=== PATIENT | male | born 1945 | race Caucasian/White ===

== ENCOUNTER 2016-10-01 16:12 | Inpatient (IN) | payer OTHER ==
[~2016-10-01] VITALS: Ht 185.4 cm; Wt 140.9 kg
[~2016-10-01 16:12] MED LIST: AEROECLIPSE1 EACH MC; ALDACTONE25 MG PO; AMITIZA24 MICROGR PO; AMLODIPINE BESY10 MG PO; ASPIRIN81 M1 PO; ASPIRIN81 M2 PO; Ambien PO; Aspirin E.C. PO; Augmentin PO; BACLOFEN10 MG PO; BACTRIM,SEPT1 TABLET PO; BETHANECHOL CHL25 MG PO; BISOPROLOL FUMA10 MG PO; BISOPROLOL FUMAR5 MG PO; CALCI-MIX500 MG PO; CALCIUM + VITA1 EACH PO; CALCIUM 500 MG1 EACH PO; CALCIUM500 M4 PO; CATAPRES0.1 MG PO; CECLOR PO; CEPHALEXIN500 MG PO; CIPRO250 MG PO; CIPRO500 MG PO; CIPROFLOXACIN500 M1 PO; CLARITIN10 MG PO; CLEARLAX17 GM PO; CLOTRIMAZOLE-BE15 GM TP; COLACE100 MG PO; COZAAR25 MG PO; CRANBERRY400 M1 PO; CRESTOR5 MG PO; CYANOCOBALAM1000 MCG PO; DAILY VALUE1 EACH PO; DESYREL100 MG PO; DESYREL300 MG PO; DULCOLAX10 MG PR; DUONEB 2.5-0.5 M3 ML IH; Desyrel PO; DuoNeb IH; FINASTERIDE5 MG PO; FLONASE16 G1 BOTH NARES; FOLIC ACID0.4 MG PO; FOLIC ACID0.8 MG PO; FUROSEMIDE40 MG PO; Flagyl PO; GABAPENTIN100 MG PO; GLYCERIN; HALFPRIN162 MG PO; HYDROCHLOROTH12.5 M3 PO; HYDROCHLOROTHIA25 MG PO; HYDROCODON-ACE1 EAC7 PO; Hydrodiuril,Oretic,E PO; K-DUR20 MEQ PO; K-Dur PO; KEFLEX500 MG PO; KETOCONAZOLE60 GM TP; KLOR-CON M2020 MEQ PO; LASIX20 MG PO; LASIX40 MG PO; LEVAQUIN750 MG PO; LIDODERM 5% P1 PATCH TD; LINEZOLID600 MG PO; LIORESAL10 MG PO; LIPITOR20 MG PO; LISINOPRIL10 MG PO; LISINOPRIL5 MG PO; LO-DOSE ASPIRIN81 M1 PO; LOPRESSOR100 M1 PO; LOPRESSOR50 MG PO; LOSARTAN POTAS100 MG PO; LOSARTAN POTASS25 MG PO; LOSARTAN-HCTZ1 EAC1 PO; LOW DOSE ASPIRI81 M1 PO; Lasix PO; Levaquin PO; Lopressor PO; Lovenox SC; MACROBID100 MG PO; MAGNESIUM CITR296 M1 PO; MANDELAMINE PO; MANDELAMINE500 MG PO; METHENAMINE HIPP1 G1 PO; METHENAMINE MA500 MG PO; METOPROLOL TART50 MG PO; MIRALAX17 GM PO; MIRALAX255 GM PO; MOTRIN600 MG PO; MULTIPLE VITAM1 EAC1 PO; MULTIVITAMIN1 EAC2 PO; MULTIVITAMINS1 EA11 PO; Maalox, Mylanta PO; Milk Of Magnesia,MOM PO; Miralax, Glycolax PO; NEURONTIN100 MG PO; NEURONTIN300 MG PO; NITROFURANTOIN100 MG PO; NORVASC10 MG PO; NORVASC5 MG PO; NYSTATIN-TRIAMC15 GM TP; Nitrostat,NitroQuick SL; Norvasc PO; ONE-A-DAY ESSE1 EAC1 PO; PHENADOZ12.5 MG PR; PHENERGAN12.5 MG PR; POLYETHYLENE GL17 GM PO; POTASSIUM CHLO20 ME2 PO; PRAVACHOL40 MG PO; PRAVASTATIN SOD40 MG PO; PRINIVIL40 MG PO; PROMETHAZINE HC25 M1 PO; PROSCAR5 MG PO; Pravachol PO; Proscar PO; REMERON30 M2 PO; ROXICODONE5 MG PO; Remeron PO; SANTYL30 GM TP; SENNA PLUS TAB1 EACH PO; SENNA8.6 M1 PO; SENOKOT,SENN1 TABLET PO; SILVADENE20 GM TP; SPIRONOLACTONE25 MG PO; TERAZOSIN HCL10 MG PO; THERACRAN650 MG PO; TRAZODONE HCL100 MG PO; TRAZODONE HCL50 MG PO; TYLENOL REGULA325 MG PO; Theragran PO; Tums,OsCal PO; URECHOLINE25 MG PO; Ultram PO; Urecholine PO; VITAMIN B122500 MCG PO; ZESTRIL10 MG PO; ZITHROMAX250 MG PO; ZITHROMAX500 MG PO; Zestril,Prinivil PO; Zofran IV; [UNRECOGNIZED DRUG - OTHER] PO; folic PO; oxyCODONE PO
[2016-10-01] MEDS ORDERED: LOPRESSOR50 MG PO (16:47)
[2016-10-01 16:54] LABS: HEMATOCRIT 34.9 % (38.0-50.0); MCH 27.3 PG (29.0-34.0); MCHC 31.8 G/DL (30.0-36.0); MEAN PLAT.VOLUME 9.3 uM^3 (9.0-12.4); PLATELET COUNT 168 K/uL (156-360); RBC DIS.WIDTH-CV 15.3 % (11.8-14.6); RBC DIS.WIDTH-SD 47.9 % (39-53); RED BLOOD COUNT 4.06 M/uL (4.00-5.50); WHITE BLOOD COUNT 6.4 K/uL (4.1-10.2)
[2016-10-01] MEDS ORDERED: LISINOPRIL5 MG PO (16:54)
[2016-10-01 17:05] LABS: CHLORIDE 99 mEq/L (99-109); POTASSIUM 3.5 mEq/L (3.7-5.4); SODIUM 138 mEq/L (136-147)
[2016-10-01 17:06] LABS: GLUCOSE 123 mg/dL (70-99)
[2016-10-01 17:08] LABS: ANION GAP 9 MEQ/L (2-14)
[2016-10-01 17:10] LABS: GFR ESTIMATE (CALCULATED) 28 mL/min/
[2016-10-01 17:11] LABS: UREA NITROGEN (BUN) 24 mg/dL (9-23)
[2016-10-01 17:55] LABS: ADD MIUA? YES; BILIRUBIN NEGATIVE; BLOOD MODERATE; COLOR YELLOW ((YELLOW)); GLUCOSE (STRIP) NEGATIVE; KETONES NEGATIVE; LEUKOCYTES LARGE; NITRITE NEGATIVE; PH, URINE 6.5 (5-8); PROTEIN (STRIP) TRACE; UROBILINOGEN 0.2 MG/DL (0.2-1.0)
[2016-10-01 18:12] LABS: BACTERIA 1+; EPITHELIAL CELLS NONE SEEN; MUCUS NONE SEEN; RED BLOOD CELLS 0-5 /HPF (0-5); UCUL ADDED? YES; WHITE BLOOD CELLS TNTC /HPF (0-5)
[2016-10-01 18:13] LABS: CASTS NONE SEEN /LPF; CRYSTALS NONE SEEN
[2016-10-02 00:03] VITALS: BP 151/71
[2016-10-02 07:26] LABS: ANION GAP 8 MEQ/L (2-14); CHLORIDE 101 MEQ/L (99-109); GFR ESTIMATE (CALCULATED) 33 mL/min/; GLUCOSE 110 mg/dL (70-99); POTASSIUM 3.6 MEQ/L (3.7-5.4); SAMPLE HEMOLYSIS CHECK 0; SAMPLE ICTERIC CHECK 0; SAMPLE LIPEMIA CHECK 0; SODIUM 140 MEQ/L (136-147); UREA NITROGEN (BUN) 24 mg/dL (9-23)
[2016-10-02 08:00] VITALS: BP 165/77
[2016-10-02 12:54] VITALS: BP 136/71
[2016-10-02 20:49] VITALS: BP 118/58
[2016-10-03] VITALS (8 sets, daily range): BP systolic 110–155; BP diastolic 57–71
[2016-10-03 06:40] LABS: ANION GAP 6 MEQ/L (2-14); CHLORIDE 103 MEQ/L (99-109); GFR ESTIMATE (CALCULATED) 33 mL/min/; GLUCOSE 102 mg/dL (70-99); POTASSIUM 4.3 MEQ/L (3.7-5.4); SAMPLE HEMOLYSIS CHECK 1; SAMPLE ICTERIC CHECK 0; SAMPLE LIPEMIA CHECK 0; SODIUM 139 MEQ/L (136-147); UREA NITROGEN (BUN) 22 mg/dL (9-23)
[2016-10-04 06:05] LABS: HEMATOCRIT 31.1 % (38.0-50.0); MCHC 30.9 G/DL (30.0-36.0); MCV 87.6 FL (86-99); MEAN PLAT.VOLUME 9.8 uM^3 (9.0-12.4); PLATELET COUNT 156 K/uL (156-360); RBC DIS.WIDTH-CV 15.2 % (11.8-14.6); RBC DIS.WIDTH-SD 49.1 % (39-53); RED BLOOD COUNT 3.55 M/uL (4.00-5.50); WHITE BLOOD COUNT 4.7 K/uL (4.1-10.2)
[2016-10-04 06:33] LABS: ANION GAP 10 MEQ/L (2-14); CHLORIDE 103 MEQ/L (99-109); GFR ESTIMATE (CALCULATED) 42 mL/min/; GLUCOSE 106 mg/dL (70-99); POTASSIUM 4.2 MEQ/L (3.7-5.4); SAMPLE HEMOLYSIS CHECK 0; SAMPLE ICTERIC CHECK 0; SAMPLE LIPEMIA CHECK 0; SODIUM 141 MEQ/L (136-147); UREA NITROGEN (BUN) 19 mg/dL (9-23)
[2016-10-04 07:23] VITALS: BP 138/75
[2016-10-04 23:10] VITALS: BP 143/60
[2016-10-05 07:03] LABS: ANION GAP 7 MEQ/L (2-14); CHLORIDE 105 MEQ/L (99-109); GFR ESTIMATE (CALCULATED) 40 mL/min/; GLUCOSE 135 mg/dL (70-99); POTASSIUM 4.4 MEQ/L (3.7-5.4); SAMPLE HEMOLYSIS CHECK 0; SAMPLE ICTERIC CHECK 0; SAMPLE LIPEMIA CHECK 0; SODIUM 139 MEQ/L (136-147); UREA NITROGEN (BUN) 20 mg/dL (9-23)
[2016-10-05 07:22] VITALS: BP 160/77
[2016-10-05] MEDS ORDERED: CIPRO500 MG PO (13:18)
== END 2016-10-05 14:55 | disposition home health service (06) | DRG 698 ==
LOC: EME → EDBD 16:12 → 5WEST 19:33 → EDOF 19:33 → 5WEST 23:33 → 5EAST 10-02 10:18 → 5WEST 10-02 10:18 → 5EAST 10-03 13:25
PROVIDERS: Emergency Medicine; Family Medicine; Nurse Practitioner Adult Health
DX: T83.511A Infection and inflammatory reaction due to indwelling urethral catheter, initial encounter (principal); N39.0 Urinary tract infection, site not specified; G82.50 Quadriplegia, unspecified; L89.893 Pressure ulcer of other site, stage 3; N17.9 Acute kidney failure, unspecified; Z68.41 Body mass index [BMI] 40.0-44.9, adult; N31.9 Neuromuscular dysfunction of bladder, unspecified; I12.9 Hypertensive chronic kidney disease with stage 1 through stage 4 chronic kidney disease, or unspecified chronic kidney disease; E78.5 Hyperlipidemia, unspecified; T83.091A Other mechanical complication of indwelling urethral catheter, initial encounter; E87.6 Hypokalemia; Z95.810 Presence of automatic (implantable) cardiac defibrillator; E66.01 Morbid (severe) obesity due to excess calories; Y84.6 Urinary catheterization as the cause of abnormal reaction of the patient, or of later complication, without mention of misadventure at the time of the procedure; I25.10 Atherosclerotic heart disease of native coronary artery without angina pectoris; M47.9 Spondylosis, unspecified; L83 Acanthosis nigricans; N18.3 Chronic kidney disease, stage 3 (moderate); N20.0 Calculus of kidney; N28.1 Cyst of kidney, acquired
CPT/HCPCS: 71010; 74176; 76770; 80048; 80069; 81003; 85027; 87086; 94799; 99281; 99285; G0378; J0744; J1644; J2405; J7030

== ENCOUNTER 2017-04-28 23:32 | Inpatient (IN) | payer OTHER ==
[~2017-04-28] VITALS: Ht 185.4 cm; Wt 128.1 kg
[2017-04-29 00:46] LABS: BASOPHIL COUNT 0.1 K/uL (0-0.1); EOSINOPHIL (%) 0 % (0-5); HEMATOCRIT 34.9 % (38.0-50.0); IMMATURE GRANULOCYTE (%) 1.4 % (0.0-0.7); IMMATURE GRANULOCYTE COUNT 0.4 K/uL; INSTRUMENT ABS NEUTROPHIL CT 26.8 K/uL; LYMPHOCYTE COUNT 0.6 K/uL (1.0-2.8); MCH 26.7 PG (29.0-34.0); MCHC 30.9 G/DL (30.0-36.0); MCV 86.4 FL (86-99); MEAN PLAT.VOLUME 9.9 uM^3 (9.0-12.4); MONOCYTE (%) 4.8 % (3-12); MONOCYTE COUNT 1.4 K/uL (0-0.8); NEUTROPHIL (%) 91.7 % (45-76); NEUTROPHIL COUNT 26.8 K/uL (1.8-6.4); PLATELET COUNT 134 K/uL (156-360); RBC DIS.WIDTH-CV 17.9 % (11.8-14.6); RBC DIS.WIDTH-SD 55.7 % (39-53); RED BLOOD COUNT 4.04 M/uL (4.00-5.50); WHITE BLOOD COUNT 29.2 K/uL (4.1-10.2)
[2017-04-29 00:55] LABS: CHLORIDE 99 mEq/L (99-109); POTASSIUM 3.9 mEq/L (3.7-5.4); SODIUM 138 mEq/L (136-147)
[2017-04-29 00:58] LABS: GLUCOSE 133 mg/dL (70-99)
[2017-04-29 00:59] LABS: ANION GAP 12 MEQ/L (2-14)
[2017-04-29 01:00] LABS: TOTAL BILIRUBIN 1.1 mg/dL (0.0-1.0)
[2017-04-29 01:01] LABS: ALKALINE PHOSPHATASE 76 IU/L (3-129); GFR ESTIMATE (CALCULATED) 27 mL/min/
[2017-04-29 01:03] LABS: UREA NITROGEN (BUN) 36 mg/dL (9-23)
[2017-04-29 01:06] LABS: TROP-I INTERPRETATION NEGATIVE; TROPONIN-I 0.02 ng/mL (0.0-0.30)
[2017-04-29 01:06] LABS: ADD MIUA? YES; BILIRUBIN NEGATIVE; BLOOD MODERATE; COLOR AMBER ((YELLOW)); GLUCOSE (STRIP) NEGATIVE; KETONES NEGATIVE; LEUKOCYTES MODERATE; NITRITE NEGATIVE; PROTEIN (STRIP) 100; SPECIFIC GRAVITY 1.013 (1.000-1.030); UROBILINOGEN 0.2 MG/DL (0.2-1.0)
[2017-04-29 01:26] LABS: BACTERIA 3+ /HPF; RED BLOOD CELLS TNTC /HPF (0-5); UCUL ADDED? YES; WHITE BLOOD CELLS TNTC /HPF (0-5)
[2017-04-29] MEDS ORDERED: MANDELAMINE500 MG PO (01:50)
[2017-04-29] MEDS ORDERED: MULTI-DAY VITA1 EACH PO (01:51)
[2017-04-29] MEDS ORDERED: PROVENTIL,2.5 MG/3 M IH (01:51)
[2017-04-29 07:14] VITALS: BP 79/46
[2017-04-29 07:50] VITALS: BP 84/49
[2017-04-29 08:19] LABS: HEMATOCRIT 28.1 % (38.0-50.0); MCH 28.6 PG (29.0-34.0); MCHC 32.7 G/DL (30.0-36.0); MCV 87.3 FL (86-99); MEAN PLAT.VOLUME 10.3 uM^3 (9.0-12.4); PLATELET COUNT 100 K/uL (156-360); RBC DIS.WIDTH-CV 17.9 % (11.8-14.6); RBC DIS.WIDTH-SD 56.6 % (39-53)
[2017-04-29 08:27] LABS: RED BLOOD COUNT 3.22 M/uL (4.00-5.50)
[2017-04-29 08:28] VITALS: BP 92/51
[2017-04-29 08:49] LABS: ANION GAP 9 MEQ/L (2-14); CHLORIDE 102 MEQ/L (99-109); SAMPLE HEMOLYSIS CHECK 1; SAMPLE ICTERIC CHECK 0; SAMPLE LIPEMIA CHECK 0; SODIUM 138 MEQ/L (136-147)
[2017-04-29 08:54] LABS: GFR ESTIMATE (CALCULATED) 30 mL/min/; GLUCOSE 113 mg/dL (70-99); UREA NITROGEN (BUN) 37 mg/dL (9-23)
[2017-04-29 12:08] VITALS: BP 95/50
[2017-04-29 15:54] VITALS: BP 109/57
[2017-04-29 19:56] VITALS: BP 95/42
[2017-04-30 00:10] VITALS: BP 113/57
[2017-04-30 03:55] VITALS: BP 104/53
[2017-04-30 06:34] LABS: HEMATOCRIT 28.7 % (38.0-50.0); MCH 27.1 PG (29.0-34.0); MCV 87.2 FL (86-99); MEAN PLAT.VOLUME 10.8 uM^3 (9.0-12.4); PLATELET COUNT 89 K/uL (156-360); RBC DIS.WIDTH-CV 17.5 % (11.8-14.6); RBC DIS.WIDTH-SD 56.4 % (39-53); RED BLOOD COUNT 3.29 M/uL (4.00-5.50); WHITE BLOOD COUNT 10.8 K/uL (4.1-10.2)
[2017-04-30 06:59] LABS: ANION GAP 8 MEQ/L (2-14); CHLORIDE 104 MEQ/L (99-109); GFR ESTIMATE (CALCULATED) 30 mL/min/; GLUCOSE 111 mg/dL (70-99); POTASSIUM 3.8 MEQ/L (3.7-5.4); SAMPLE HEMOLYSIS CHECK 0; SAMPLE ICTERIC CHECK 0; SAMPLE LIPEMIA CHECK 0; SODIUM 138 MEQ/L (136-147); UREA NITROGEN (BUN) 40 mg/dL (9-23)
[2017-04-30 07:51] VITALS: BP 162/74
[2017-04-30 11:16] VITALS: BP 114/68
[2017-04-30 16:05] VITALS: BP 109/72
[2017-04-30 19:56] VITALS: BP 172/83
[2017-04-30 20:36] LABS: C DIFF TOXIN POSITIVE (NEGATIVE)
[2017-04-30 20:46] LABS: PROBE CHECK PASS
[2017-05-01 00:11] VITALS: BP 138/72
[2017-05-01 04:10] VITALS: BP 140/72
[2017-05-01 06:34] LABS: HEMATOCRIT 27.9 % (38.0-50.0); MCH 27.3 PG (29.0-34.0); MCHC 31.5 G/DL (30.0-36.0); MCV 86.6 FL (86-99); MEAN PLAT.VOLUME 10.7 uM^3 (9.0-12.4); PLATELET COUNT 96 K/uL (156-360); RBC DIS.WIDTH-CV 17.5 % (11.8-14.6); RBC DIS.WIDTH-SD 55.3 % (39-53); RED BLOOD COUNT 3.22 M/uL (4.00-5.50); WHITE BLOOD COUNT 6.6 K/uL (4.1-10.2)
[2017-05-01 07:01] LABS: ANION GAP 8 MEQ/L (2-14); CHLORIDE 105 MEQ/L (99-109); GFR ESTIMATE (CALCULATED) 33 mL/min/; GLUCOSE 110 mg/dL (70-99); POTASSIUM 3.9 MEQ/L (3.7-5.4); SAMPLE HEMOLYSIS CHECK 2; SAMPLE ICTERIC CHECK 0; SAMPLE LIPEMIA CHECK 0; SODIUM 141 MEQ/L (136-147); UREA NITROGEN (BUN) 32 mg/dL (9-23)
[2017-05-01 08:19] VITALS: BP 122/68
[2017-05-01 12:28] VITALS: BP 118/62
[2017-05-01 16:30] VITALS: BP 120/64
[2017-05-01 20:06] VITALS: BP 138/63
[2017-05-02] VITALS (7 sets, daily range): BP systolic 122–153; BP diastolic 58–79
[2017-05-02 07:09] LABS: HEMATOCRIT 29.2 % (38.0-50.0); MCH 27.7 PG (29.0-34.0); MCHC 31.2 G/DL (30.0-36.0); MEAN PLAT.VOLUME 10.6 uM^3 (9.0-12.4); PLATELET COUNT 106 K/uL (156-360); RBC DIS.WIDTH-CV 17.4 % (11.8-14.6); RBC DIS.WIDTH-SD 57.2 % (39-53); RED BLOOD COUNT 3.28 M/uL (4.00-5.50); WHITE BLOOD COUNT 5.3 K/uL (4.1-10.2)
[2017-05-02 07:34] LABS: ANION GAP 5 MEQ/L (2-14); CHLORIDE 104 MEQ/L (99-109); GFR ESTIMATE (CALCULATED) 33 mL/min/; GLUCOSE 102 mg/dL (70-99); POTASSIUM 3.7 MEQ/L (3.7-5.4); SAMPLE HEMOLYSIS CHECK 0; SAMPLE ICTERIC CHECK 0; SAMPLE LIPEMIA CHECK 0; SODIUM 143 MEQ/L (136-147); UREA NITROGEN (BUN) 33 mg/dL (9-23)
[2017-05-03 03:39] VITALS: BP 118/72
[2017-05-03 06:39] LABS: HEMATOCRIT 31.2 % (38.0-50.0); MCHC 30.8 G/DL (30.0-36.0); MCV 87.6 FL (86-99); MEAN PLAT.VOLUME 10.2 uM^3 (9.0-12.4); PLATELET COUNT 130 K/uL (156-360); RBC DIS.WIDTH-CV 16.9 % (11.8-14.6); RBC DIS.WIDTH-SD 54.3 % (39-53); RED BLOOD COUNT 3.56 M/uL (4.00-5.50); WHITE BLOOD COUNT 5.4 K/uL (4.1-10.2)
[2017-05-03 07:07] LABS: ANION GAP 5 MEQ/L (2-14); CHLORIDE 102 MEQ/L (99-109); GFR ESTIMATE (CALCULATED) 37 mL/min/; GLUCOSE 103 mg/dL (70-99); POTASSIUM 3.9 MEQ/L (3.7-5.4); SAMPLE HEMOLYSIS CHECK 0; SAMPLE ICTERIC CHECK 0; SAMPLE LIPEMIA CHECK 0; SODIUM 144 MEQ/L (136-147); UREA NITROGEN (BUN) 32 mg/dL (9-23)
[2017-05-03 07:46] VITALS: BP 140/78
[2017-05-03 12:06] VITALS: BP 117/69
[2017-05-03] MEDS ORDERED: ACIDOPHILUS LA1 EACH PO (12:29)
[2017-05-03] MEDS ORDERED: METRONIDAZOLE500 MG PO (12:29)
[2017-05-03 16:24] VITALS: BP 162/88
== END 2017-05-03 18:08 | disposition home or self-care (01) | DRG 871 ==
LOC: EME → EDBD 23:32 → EDOF 04-29 03:57 → 3EAST 04-29 03:57 → ENRESERV 04-29 03:59 → 3EAST 04-29 05:44
PROVIDERS: Emergency Medicine; Hospitalist; Internal Medicine
DX: A41.9 Sepsis, unspecified organism (principal); J15.0 Pneumonia due to Klebsiella pneumoniae; E87.2 Acidosis; L89.159 Pressure ulcer of sacral region, unspecified stage; A04.7 Enterocolitis due to Clostridium difficile; N39.0 Urinary tract infection, site not specified; L89.893 Pressure ulcer of other site, stage 3; N17.9 Acute kidney failure, unspecified; G82.50 Quadriplegia, unspecified; I13.0 Hypertensive heart and chronic kidney disease with heart failure and stage 1 through stage 4 chronic kidney disease, or unspecified chronic kidney disease; I50.9 Heart failure, unspecified; I25.10 Atherosclerotic heart disease of native coronary artery without angina pectoris; D64.9 Anemia, unspecified; R09.02 Hypoxemia; E78.5 Hyperlipidemia, unspecified; N31.9 Neuromuscular dysfunction of bladder, unspecified; N18.9 Chronic kidney disease, unspecified; K21.9 Gastro-esophageal reflux disease without esophagitis; R21 Rash and other nonspecific skin eruption; E66.9 Obesity, unspecified; Z68.37 Body mass index [BMI] 37.0-37.9, adult; B96.20 Unspecified Escherichia coli [E. coli] as the cause of diseases classified elsewhere; Z74.01 Bed confinement status; Z95.810 Presence of automatic (implantable) cardiac defibrillator; Z72.0 Tobacco use; Z79.899 Other long term (current) drug therapy; Z80.8 Family history of malignant neoplasm of other organs or systems; Z80.0 Family history of malignant neoplasm of digestive organs
CPT/HCPCS: 71020; 80048; 80048 91; 80053; 81003; 83605; 83880; 84484; 85025; 85027; 87040; 87070; 87077; 87086; 87186; 87205; 87493; 87801; 93005; 94640; 94640 76; 94799; 99202; 99281; 99285; A6260; J0692; J0696; J1644; J2405; J3370; J7030; J7040; J7050; S0028; S0030

== ENCOUNTER 2017-11-13 09:37 | Inpatient (IN) | payer OTHER ==
[~2017-11-13] VITALS: Ht 182.9 cm; Wt 78.8 kg
[~2017-11-13 09:37] MED LIST changes: +ACIDOPHILUS LA1 EACH PO; +METRONIDAZOLE500 MG PO; +MULTI-DAY VITA1 EACH PO; +PROVENTIL,2.5 MG/3 M IH
[2017-11-13 10:13] LABS: BASOPHIL (%) 0.2 % (0-1); EOSINOPHIL (%) 0 % (0-5); IMMATURE GRANULOCYTE (%) 0.5 % (0.0-0.7); LYMPHOCYTE (%) 1.6 % (15-42); LYMPHOCYTE COUNT 0.4 K/uL (1.0-2.8); MCH 27.8 PG (29.0-34.0); MCHC 32.4 G/DL (30.0-36.0); MCV 86.1 FL (86-99); MONOCYTE (%) 4.7 % (3-12); NEUTROPHIL COUNT 20.6 K/uL (1.8-6.4); PLATELET COUNT 153 K/uL (156-360); RBC DIS.WIDTH-CV 15.4 % (11.8-14.6); RED BLOOD COUNT 3.95 M/uL (4.00-5.50); WHITE BLOOD COUNT 22.1 K/uL (4.1-10.2)
[2017-11-13 10:17] LABS: INTER. NORMALIZED RATIO 1.2
[2017-11-13 10:20] LABS: PTT 24.7 SEC (25-37)
[2017-11-13 10:21] LABS: CHLORIDE 99 mEq/L (99-109); POTASSIUM 3.8 mEq/L (3.7-5.4); SODIUM 136 mEq/L (136-147)
[2017-11-13 10:23] LABS: GLUCOSE 122 mg/dL (70-99)
[2017-11-13 10:27] LABS: CREATININE 2.2 mg/dL (0.6-1.3); GFR ESTIMATE (CALCULATED) 31 mL/min/ (58.99-99999)
[2017-11-13 10:28] LABS: UREA NITROGEN (BUN) 34 mg/dL (9-23)
[2017-11-13 10:33] LABS: TROP-I INTERPRETATION NEGATIVE
[2017-11-13] MEDS ORDERED: [UNRECOGNIZED DRUG - OTHER] TP (12:34)
[2017-11-13 18:40] VITALS: BP 82/47
[2017-11-13 19:35] LABS: TROP-I INTERPRETATION NEGATIVE; TROPONIN-I 0.11 ng/mL (0.0-0.30)
[2017-11-14 01:10] LABS: C DIFF TOXIN POSITIVE (NEGATIVE)
[2017-11-14 03:43] LABS: TROP-I INTERPRETATION NEGATIVE; TROPONIN-I 0.05 ng/mL (0.0-0.30)
[2017-11-14 04:00] LABS: APPEARANCE CLOUDY ((CLEAR)); BILIRUBIN NEGATIVE; BLOOD LARGE; GLUCOSE (STRIP) 150; KETONES NEGATIVE; LEUKOCYTES NEGATIVE; NITRITE NEGATIVE; PROTEIN (STRIP) >=500; UROBILINOGEN 0.2 MG/DL (0.2-1.0)
[2017-11-14 04:01] LABS: COLOR RED ((YELLOW))
[2017-11-14 04:17] VITALS: BP 134/65
[2017-11-14 04:21] LABS: RED BLOOD CELLS TNTC /HPF (0-5)
[2017-11-14 04:59] LABS: HEMATOCRIT 31.7 % (38.0-50.0); HEMOGLOBIN 10.1 G/DL (12.5-16.6); MCH 27.7 PG (29.0-34.0); MCHC 31.9 G/DL (30.0-36.0); MCV 86.8 FL (86-99); PLATELET COUNT 137 K/uL (156-360); RBC DIS.WIDTH-CV 15.6 % (11.8-14.6); RBC DIS.WIDTH-SD 49.4 % (39-53); RED BLOOD COUNT 3.65 M/uL (4.00-5.50); WHITE BLOOD COUNT 15.4 K/uL (4.1-10.2)
[2017-11-14 05:03] LABS: CHLORIDE 101 mEq/L (99-109); POTASSIUM 3.8 mEq/L (3.7-5.4); SODIUM 138 mEq/L (136-147)
[2017-11-14 05:05] LABS: GLUCOSE 128 mg/dL (70-99)
[2017-11-14 05:09] LABS: CREATININE 2.4 mg/dL (0.6-1.3); GFR ESTIMATE (CALCULATED) 28 mL/min/ (58.99-99999)
[2017-11-14 05:10] LABS: UREA NITROGEN (BUN) 44 mg/dL (9-23)
[2017-11-14 08:12] VITALS: BP 125/63
[2017-11-14 16:15] VITALS: BP 124/60
[2017-11-14 20:33] VITALS: BP 78/44
[2017-11-14 21:16] VITALS: BP 100/62
[2017-11-15 00:05] VITALS: BP 100/55
[2017-11-15 05:06] VITALS: BP 90/52
[2017-11-15 05:43] LABS: BASOPHIL (%) 0.2 % (0-1); EOSINOPHIL (%) 2.8 % (0-5); EOSINOPHIL COUNT 0.3 K/uL (0-0.3); HEMATOCRIT 28.4 % (38.0-50.0); HEMOGLOBIN 8.7 G/DL (12.5-16.6); IMMATURE GRANULOCYTE (%) 0.5 % (0.0-0.7); LYMPHOCYTE (%) 4.9 % (15-42); LYMPHOCYTE COUNT 0.5 K/uL (1.0-2.8); MCH 27.4 PG (29.0-34.0); MCHC 30.6 G/DL (30.0-36.0); MCV 89.3 FL (86-99); MONOCYTE (%) 5.4 % (3-12); MONOCYTE COUNT 0.5 K/uL (0-0.8); NEUTROPHIL (%) 86.2 % (45-76); NEUTROPHIL COUNT 8.1 K/uL (1.8-6.4); PLATELET COUNT 118 K/uL (156-360); RBC DIS.WIDTH-CV 15.6 % (11.8-14.6); RBC DIS.WIDTH-SD 51.4 % (39-53); RED BLOOD COUNT 3.18 M/uL (4.00-5.50); WHITE BLOOD COUNT 9.4 K/uL (4.1-10.2)
[2017-11-15 06:02] VITALS: BP 100/65
[2017-11-15 06:04] LABS: CHLORIDE 106 MEQ/L (99-109); CREATININE 2.8 MG/DL (0.6-1.3); GFR ESTIMATE (CALCULATED) 24 mL/min/ (58.99-99999); GLUCOSE 131 mg/dL (70-99); MAGNESIUM 2.3 mg/dl (1.3-2.7); PHOSPHORUS 4.4 mg/dL (2.5-4.9); POTASSIUM 3.9 MEQ/L (3.7-5.4); SODIUM 139 MEQ/L (136-147); UREA NITROGEN (BUN) 51 mg/dL (9-23)
[2017-11-15 08:14] VITALS: BP 124/60
[2017-11-15 14:43] LABS: APPEARANCE TURBID ((CLEAR)); BILIRUBIN NEGATIVE; BLOOD LARGE; COLOR YELLOW ((YELLOW)); GLUCOSE (STRIP) NEGATIVE; KETONES NEGATIVE; LEUKOCYTES LARGE; NITRITE POSITIVE; PROTEIN (STRIP) 30; SPECIFIC GRAVITY 1.009 (1.000-1.030); UROBILINOGEN 0.2 MG/DL (0.2-1.0)
[2017-11-15 14:54] LABS: RED BLOOD CELLS 15-20 /HPF (0-5); WHITE BLOOD CELLS TNTC /HPF (0-5)
[2017-11-15 14:55] LABS: BACTERIA 1+ /HPF; EPITHELIAL CELLS NONE SEEN /HPF; MUCUS NONE SEEN /LPF; UCUL ADDED? YES
[2017-11-15 17:54] VITALS: BP 122/70
[2017-11-16 00:23] VITALS: BP 106/54
[2017-11-16 07:05] LABS: BASOPHIL (%) 0.2 % (0-1); EOSINOPHIL (%) 3.6 % (0-5); EOSINOPHIL COUNT 0.2 K/uL (0-0.3); HEMATOCRIT 31.3 % (38.0-50.0); HEMOGLOBIN 9.5 G/DL (12.5-16.6); IMMATURE GRANULOCYTE (%) 0.5 % (0.0-0.7); LYMPHOCYTE (%) 4.6 % (15-42); LYMPHOCYTE COUNT 0.3 K/uL (1.0-2.8); MCHC 30.4 G/DL (30.0-36.0); MCV 88.9 FL (86-99); MONOCYTE (%) 5.5 % (3-12); MONOCYTE COUNT 0.3 K/uL (0-0.8); NEUTROPHIL (%) 85.6 % (45-76); NEUTROPHIL COUNT 5.3 K/uL (1.8-6.4); PLATELET COUNT 131 K/uL (156-360); RBC DIS.WIDTH-CV 15.5 % (11.8-14.6); RBC DIS.WIDTH-SD 50.9 % (39-53); RED BLOOD COUNT 3.52 M/uL (4.00-5.50); WHITE BLOOD COUNT 6.1 K/uL (4.1-10.2)
[2017-11-16 07:36] LABS: CHLORIDE 109 MEQ/L (99-109); CREATININE 2.4 MG/DL (0.6-1.3); GFR ESTIMATE (CALCULATED) 28 mL/min/ (58.99-99999); GLUCOSE 124 mg/dL (70-99); MAGNESIUM 2.4 mg/dl (1.3-2.7); PHOSPHORUS 4.1 mg/dL (2.5-4.9); POTASSIUM 4.3 MEQ/L (3.7-5.4); SODIUM 142 MEQ/L (136-147); UREA NITROGEN (BUN) 46 mg/dL (9-23)
[2017-11-16 07:42] VITALS: BP 121/62
[2017-11-16 15:51] VITALS: BP 134/68
[2017-11-16 22:50] VITALS: BP 140/63
[2017-11-17] VITALS (11 sets, daily range): BP systolic 81–160; BP diastolic 53–90
[2017-11-17 04:30] LABS: BASE EXCESS 1.7 mEq/L (-3 to +3); BICARBONATE 27.7 mEq/L (22-26); CARBOXY HGB 1.2 % (0-5); COMMENTS - BLOOD GASES C+A+; DEVICE NC; METHEMOGLOBIN 1.6 % (0-1.5); O2 FLOW 2 L/MIN; PCO2 49 mm Hg (35-45); PO2 87 mm Hg (80-100); SITE RR; pH 7.36 (7.35-7.45)
[2017-11-17 05:39] LABS: TROP-I INTERPRETATION NEGATIVE; TROPONIN-I 0.02 ng/mL (0.0-0.30)
[2017-11-17 05:39] LABS: BASOPHIL (%) 0.3 % (0-1); EOSINOPHIL (%) 3.9 % (0-5); EOSINOPHIL COUNT 0.3 K/uL (0-0.3); HEMOGLOBIN 10.1 G/DL (12.5-16.6); LYMPHOCYTE (%) 5.3 % (15-42); LYMPHOCYTE COUNT 0.4 K/uL (1.0-2.8); MCH 26.6 PG (29.0-34.0); MCHC 30.6 G/DL (30.0-36.0); MCV 87.1 FL (86-99); MONOCYTE COUNT 0.4 K/uL (0-0.8); NEUTROPHIL (%) 83.5 % (45-76); NEUTROPHIL COUNT 5.9 K/uL (1.8-6.4); PLATELET COUNT 163 K/uL (156-360); RBC DIS.WIDTH-CV 15.4 % (11.8-14.6); RBC DIS.WIDTH-SD 49.3 % (39-53); RED BLOOD COUNT 3.79 M/uL (4.00-5.50)
[2017-11-17 05:51] LABS: CHLORIDE 105 MEQ/L (99-109); CREATININE 2.2 MG/DL (0.6-1.3); GFR ESTIMATE (CALCULATED) 31 mL/min/ (58.99-99999); GLUCOSE 116 mg/dL (70-99); MAGNESIUM 2.3 mg/dl (1.3-2.7); POTASSIUM 4.2 MEQ/L (3.7-5.4); SODIUM 139 MEQ/L (136-147); UREA NITROGEN (BUN) 43 mg/dL (9-23)
[2017-11-17 15:41] LABS: BASE EXCESS -6.2 mEq/L (-3 to +3); BICARBONATE 24.1 mEq/L (22-26); CARBOXY HGB 1.6 % (0-5); COMMENTS - BLOOD GASES C+; DEVICE NRBM; METHEMOGLOBIN 1.6 % (0-1.5); O2 FLOW 15 L/MIN; PCO2 74 mm Hg (35-45); PO2 44 mm Hg (80-100); SITE RR; pH 7.12 (7.35-7.45)
[2017-11-17 22:37] LABS: BASE EXCESS 3.7 mEq/L (-3 to +3); BICARBONATE 28.5 mEq/L (22-26); CARBOXY HGB 1.5 % (0-5); COMMENTS - BLOOD GASES C+; METHEMOGLOBIN 1.4 % (0-1.5); PCO2 43 mm Hg (35-45); PO2 62 mm Hg (80-100); SITE RR; pH 7.43 (7.35-7.45)
[2017-11-17 22:38] LABS: DEVICE NIV; FI02 70 %; MODE SPONT; PEEP 6 CM/H20; PRES. SUPPORT 15 CM/H2O; TOTAL RESP RATE 22 resp/min
[2017-11-18] VITALS (24 sets, daily range): BP systolic 107–171; BP diastolic 60–110
[2017-11-18 05:59] LABS: BASOPHIL (%) 0.1 % (0-1); EOSINOPHIL (%) 0 % (0-5); HEMATOCRIT 32.4 % (38.0-50.0); HEMOGLOBIN 10.4 G/DL (12.5-16.6); IMMATURE GRANULOCYTE (%) 0.3 % (0.0-0.7); LYMPHOCYTE (%) 3.7 % (15-42); LYMPHOCYTE COUNT 0.4 K/uL (1.0-2.8); MCH 27.2 PG (29.0-34.0); MCHC 32.1 G/DL (30.0-36.0); MCV 84.6 FL (86-99); MONOCYTE (%) 1.9 % (3-12); MONOCYTE COUNT 0.2 K/uL (0-0.8); PLATELET COUNT 193 K/uL (156-360); RBC DIS.WIDTH-CV 15.3 % (11.8-14.6); RBC DIS.WIDTH-SD 46.8 % (39-53); RED BLOOD COUNT 3.83 M/uL (4.00-5.50); WHITE BLOOD COUNT 9.6 K/uL (4.1-10.2)
[2017-11-18 06:26] LABS: ALBUMIN 2.9 G/DL (3.2-4.8); CHLORIDE 104 MEQ/L (99-109); CREATININE 2.4 MG/DL (0.6-1.3); GFR ESTIMATE (CALCULATED) 28 mL/min/ (58.99-99999); GLUCOSE 155 mg/dL (70-99); PHOSPHORUS 3.2 mg/dL (2.5-4.9); POTASSIUM 3.8 MEQ/L (3.7-5.4); SODIUM 144 MEQ/L (136-147); UREA NITROGEN (BUN) 46 mg/dL (9-23)
[2017-11-18 15:08] LABS: BASE EXCESS 4.9 mEq/L (-3 to +3); BICARBONATE 29.9 mEq/L (22-26); COMMENTS - BLOOD GASES NA C+; DEVICE NC; METHEMOGLOBIN 1.2 % (0-1.5); O2 FLOW 2 L/MIN; PCO2 45 mm Hg (35-45); PO2 106 mm Hg (80-100); SITE RR; pH 7.43 (7.35-7.45)
[2017-11-18 15:09] LABS: TOTAL RESP RATE 29 resp/min
[2017-11-19] VITALS (12 sets, daily range): BP systolic 84–174; BP diastolic 46–85
[2017-11-19 11:10] LABS: BASOPHIL (%) 0.1 % (0-1); EOSINOPHIL (%) 0.1 % (0-5); HEMATOCRIT 34.9 % (38.0-50.0); HEMOGLOBIN 11.1 G/DL (12.5-16.6); IMMATURE GRANULOCYTE (%) 0.5 % (0.0-0.7); LYMPHOCYTE (%) 0.6 % (15-42); LYMPHOCYTE COUNT 0.1 K/uL (1.0-2.8); MCH 27.3 PG (29.0-34.0); MCHC 31.8 G/DL (30.0-36.0); MCV 85.7 FL (86-99); MONOCYTE COUNT 0.5 K/uL (0-0.8); NEUTROPHIL (%) 94.7 % (45-76); NEUTROPHIL COUNT 12.3 K/uL (1.8-6.4); PLATELET COUNT 160 K/uL (156-360); RBC DIS.WIDTH-CV 15.5 % (11.8-14.6); RBC DIS.WIDTH-SD 48.3 % (39-53); RED BLOOD COUNT 4.07 M/uL (4.00-5.50); WHITE BLOOD COUNT 12.9 K/uL (4.1-10.2)
[2017-11-19 11:39] LABS: CHLORIDE 98 MEQ/L (99-109); CREATININE 2.2 MG/DL (0.6-1.3); GFR ESTIMATE (CALCULATED) 31 mL/min/ (58.99-99999); GLUCOSE 149 mg/dL (70-99); PHOSPHORUS 3.7 mg/dL (2.5-4.9); POTASSIUM 2.7 MEQ/L (3.7-5.4); SODIUM 140 MEQ/L (136-147); UREA NITROGEN (BUN) 48 mg/dL (9-23)
[2017-11-20] VITALS (8 sets, daily range): BP systolic 72–106; BP diastolic 46–59
[2017-11-20 06:01] LABS: BASOPHIL (%) 0 % (0-1); EOSINOPHIL (%) 0.3 % (0-5); HEMATOCRIT 32.2 % (38.0-50.0); HEMOGLOBIN 9.8 G/DL (12.5-16.6); IMMATURE GRANULOCYTE (%) 0.9 % (0.0-0.7); LYMPHOCYTE (%) 6.6 % (15-42); LYMPHOCYTE COUNT 0.4 K/uL (1.0-2.8); MCH 26.6 PG (29.0-34.0); MCHC 30.4 G/DL (30.0-36.0); MCV 87.5 FL (86-99); MONOCYTE (%) 10.2 % (3-12); MONOCYTE COUNT 0.7 K/uL (0-0.8); NEUTROPHIL COUNT 5.4 K/uL (1.8-6.4); PLATELET COUNT 131 K/uL (156-360); RBC DIS.WIDTH-CV 15.8 % (11.8-14.6); RBC DIS.WIDTH-SD 50.2 % (39-53); RED BLOOD COUNT 3.68 M/uL (4.00-5.50); WHITE BLOOD COUNT 6.6 K/uL (4.1-10.2)
[2017-11-20 06:20] LABS: CHLORIDE 102 MEQ/L (99-109); CREATININE 2.4 MG/DL (0.6-1.3); GFR ESTIMATE (CALCULATED) 28 mL/min/ (58.99-99999); GLUCOSE 118 mg/dL (70-99); POTASSIUM 3.6 MEQ/L (3.7-5.4); SODIUM 142 MEQ/L (136-147); UREA NITROGEN (BUN) 48 mg/dL (9-23)
[2017-11-21] VITALS (7 sets, daily range): BP systolic 93–118; BP diastolic 49–56
[2017-11-21 06:16] LABS: CHLORIDE 102 MEQ/L (99-109); CREATININE 2.4 MG/DL (0.6-1.3); GFR ESTIMATE (CALCULATED) 28 mL/min/ (58.99-99999); GLUCOSE 140 mg/dL (70-99); MAGNESIUM 2.1 mg/dl (1.3-2.7); PHOSPHORUS 4.9 mg/dL (2.5-4.9); POTASSIUM 3.1 MEQ/L (3.7-5.4); SODIUM 143 MEQ/L (136-147); UREA NITROGEN (BUN) 49 mg/dL (9-23)
[2017-11-21 06:31] LABS: BASOPHIL (%) 0 % (0-1); EOSINOPHIL (%) 3.3 % (0-5); EOSINOPHIL COUNT 0.2 K/uL (0-0.3); HEMOGLOBIN 9.4 G/DL (12.5-16.6); LYMPHOCYTE COUNT 0.4 K/uL (1.0-2.8); MCH 27.1 PG (29.0-34.0); MCHC 30.3 G/DL (30.0-36.0); MCV 89.3 FL (86-99); MONOCYTE (%) 8.4 % (3-12); MONOCYTE COUNT 0.4 K/uL (0-0.8); NEUTROPHIL (%) 78.3 % (45-76); NEUTROPHIL COUNT 3.8 K/uL (1.8-6.4); PLATELET COUNT 126 K/uL (156-360); RBC DIS.WIDTH-CV 15.9 % (11.8-14.6); RBC DIS.WIDTH-SD 52.2 % (39-53); RED BLOOD COUNT 3.47 M/uL (4.00-5.50); WHITE BLOOD COUNT 4.9 K/uL (4.1-10.2)
[2017-11-22 03:57] VITALS: BP 116/56
[2017-11-22 07:25] VITALS: BP 130/54
[2017-11-22 07:31] LABS: CARBOXY HGB 1.8 % (0-5); DEVICE HHFNC; METHEMOGLOBIN 1.3 % (0-1.5); O2 FLOW 70 L/MIN; PCO2 > 128 mm Hg (35-45); PO2 100 mm Hg (80-100); SITE RR; pH 7.04 (7.35-7.45)
[2017-11-22 07:32] LABS: COMMENTS - BLOOD GASES A+C+; FI02 100 %; TOTAL RESP RATE 30 resp/min
[2017-11-22 08:00] VITALS: BP 116/68
== END 2017-11-22 10:50 | DRG 371 ==
LOC: EME 09:37 → 5EAST 12:06 → 4WEST 12:06 → 5SOUTH 12:06 → EDOF 12:06 → ENRESERV 12:07 → 5SOUTH 18:19 → ENRESERV 11-17 15:44 → 4WEST 11-17 15:57 → ENRESERV 11-19 11:28 → 4WEST 11-19 11:36 → CANRESERV 11-19 23:50 → ENRESERV 11-19 23:50 → 5EAST 11-21 20:39 → ENRESERV 11-22 07:37 → 5EAST 11-22 07:38 → ENRESERV 11-22 07:49 → 4WEST 11-22 07:54 → ENRESERV 11-22 09:36 → 4WEST 11-22 09:40 → 5EAST 11-22 09:40 → 4WEST 11-22 10:52 → 5EAST 11-22 10:52
PROVIDERS: Emergency Medicine; Hospitalist; Internal Medicine; Internal Medicine Nephrology; Physician Assistant; Specialist
PROC: 5A0935Z Assistance with Respiratory Ventilation, Less than 24 Consecutive Hours (ICD-10-PCS; principal; 2017-11-17)
DX: A04.72 Enterocolitis due to Clostridium difficile, not specified as recurrent (principal); J18.9 Pneumonia, unspecified organism; N17.0 Acute kidney failure with tubular necrosis; G93.41 Metabolic encephalopathy; J44.9 Chronic obstructive pulmonary disease, unspecified; G82.20 Paraplegia, unspecified; I10 Essential (primary) hypertension; Z96.0 Presence of urogenital implants; Z66 Do not resuscitate; N28.1 Cyst of kidney, acquired; N20.0 Calculus of kidney; N31.2 Flaccid neuropathic bladder, not elsewhere classified; J96.22 Acute and chronic respiratory failure with hypercapnia; L89.319 Pressure ulcer of right buttock, unspecified stage; N18.3 Chronic kidney disease, stage 3 (moderate); R19.7 Diarrhea, unspecified; D64.9 Anemia, unspecified; N39.0 Urinary tract infection, site not specified; A41.9 Sepsis, unspecified organism; A04.71 Enterocolitis due to Clostridium difficile, recurrent; J20.9 Acute bronchitis, unspecified; B96.5 Pseudomonas (aeruginosa) (mallei) (pseudomallei) as the cause of diseases classified elsewhere; I25.10 Atherosclerotic heart disease of native coronary artery without angina pectoris; J44.1 Chronic obstructive pulmonary disease with (acute) exacerbation; J44.0 Chronic obstructive pulmonary disease with (acute) lower respiratory infection; I50.30 Unspecified diastolic (congestive) heart failure; L22 Diaper dermatitis; N31.9 Neuromuscular dysfunction of bladder, unspecified; E87.70 Fluid overload, unspecified; T83.511A Infection and inflammatory reaction due to indwelling urethral catheter, initial encounter; E87.79 Other fluid overload; Z51.5 Encounter for palliative care; L89.159 Pressure ulcer of sacral region, unspecified stage; G82.50 Quadriplegia, unspecified; R31.0 Gross hematuria; Z87.440 Personal history of urinary (tract) infections; Z95.0 Presence of cardiac pacemaker; Z87.891 Personal history of nicotine dependence; Z85.828 Personal history of other malignant neoplasm of skin; Z88.8 Allergy status to other drugs, medicaments and biological substances; Z95.810 Presence of automatic (implantable) cardiac defibrillator; E87.2 Acidosis; I13.0 Hypertensive heart and chronic kidney disease with heart failure and stage 1 through stage 4 chronic kidney disease, or unspecified chronic kidney disease; Z99.81 Dependence on supplemental oxygen; Z87.01 Personal history of pneumonia (recurrent); Z86.19 Personal history of other infectious and parasitic diseases; Z68.36 Body mass index [BMI] 36.0-36.9, adult; E87.6 Hypokalemia
CPT/HCPCS: 31720; 36600; 71045; 71250; 74230; 76770; 80048; 80069; 81003; 82803; 82948; 83605; 83735; 83880; 84100; 84132 91; 84484; 85025; 85027; 85610; 85730; 87040; 87077; 87086; 87186; 87493; 87502; 87641; 92610 GN; 92611 GN; 93005; 93306; 94002; 94003; 94010; 94640; 94640 76; 94667; 94668; 94760; 94799; 99202; 99281; 99285; J0295; J0456; J0696; J1644; J1940; J2270; J2310; J2405; J2930; J3475; J3480; J7030; J7040; J7050; P9047